=== PATIENT | female | born 1970 | race Caucasian/White ===

== ENCOUNTER → 2020-09-06 13:59 | Outpatient (CLI) | payer OTHER, SELFPAY ==
--- NOTE | ~2020-09-06 | MM_ITS ---
EXAMINATION: MM screening justice BI w jamie HISTORY: Screening mammogram TECHNIQUE: Craniocaudal and mediolateral oblique 3-D tomosynthesis images were obtained and synthetic 2-D images were generated. CAD analysis was submitted and interpreted. COMPARISON: 07/23/2019, 06/28/2018, 02/15/2016 bilateral digital mammogram examinations BREAST PARENCHYMAL COMPOSITION: There are scattered areas of fibroglandular density. FINDINGS: There is no evidence of suspicious mass, calcification, or architectural distortion to sugg est malignancy in either breast. There has been no suspicious interval change. IMPRESSION: 1. No mammographic evidence of malignancy. 2. Recommend routine screening mammography in one year. BI-RADS Category 1: Negative Reviewed, dictated and finalized at location A.
== END ==
PROVIDERS: Visit Provider Nurse Practitioner
DX: Z12.31 Encounter for screening mammogram for malignant neoplasm of breast (principal)
CPT/HCPCS: 77063; 77067

== ENCOUNTER → 2020-12-02 12:59 | Outpatient (CLI) | payer OTHER, BC, SELFPAY ==
--- NOTE | ~2020-12-02 | US_ITS ---
EXAMINATION: US soft tissue head and neck DATE: 12/02/2020 13:15 INDICATION: Left neck lump. TECHNIQUE: Multiple grayscale ultrasound images of the neck were obtained. COMPARISON: None FINDINGS: There is no abnormal mass or lymphadenopathy in the patient's area of concern in the neck. IMPRESSION: 1. No abnormal mass or lymphadenopathy in the patient's area of concern in the neck. Reviewed, dictated and finalized at location B. ICAL AIDE
== END ==
PROVIDERS: PCP Internal Medicine; Visit Provider Nurse Practitioner
DX: M79.89 Other specified soft tissue disorders (principal)
CPT/HCPCS: 76536

== ENCOUNTER → 2021-11-17 14:36 | Outpatient (CLI) | payer OTHER, BC, SELFPAY ==
--- NOTE | ~2021-11-17 | MM_ITS ---
EXAMINATION: MM screening [facility] BI w jamie HISTORY: Screening mammogram TECHNIQUE: Craniocaudal and mediolateral oblique 3-D tomosynthesis images were obtained and synthetic 2-D images were generated. CAD analysis was submitted and interpreted. COMPARISON: 09/06/2020, 07/23/2019, 06/28/2018 BREAST PARENCHYMAL COMPOSITION: There are scattered areas of fibroglandular density. FINDINGS: There is no evidence of suspicious mass, calcification, or architectural distortion to sugg est malignancy in either breast. There has been no suspicious interval change. IMPRESSION: 1. No mammographic evidence of malignancy. 2. Recommend routine screening mammography in one year. BI-RADS Category 1: Negative Reviewed, dictated and finalized at location A. CH STEWARD
== END ==
PROVIDERS: PCP Internal Medicine; Visit Provider Nurse Practitioner
DX: Z12.31 Encounter for screening mammogram for malignant neoplasm of breast (principal)
CPT/HCPCS: 77063; 77067

== ENCOUNTER 2023-09-29 13:32 | Emergency (ER) | payer OTHER, BC, SELFPAY ==
--- NOTE | 2023-09-29 14:10 | ED.GENADULT ---
HPI - General Adult General Chief complaint: Upper Respiratory Infection Stated complaint: sorethroat,chest congestion Time Seen by Provider: 09/29/23 14:10 Source: patient Mode of arrival: ambulatory Limitations: no limitations History of Present Illness HPI narrative: 53-year-old female presents to urgent care today for symptoms that started yesterday of body aches, chills, sore throat, and headache. Patient states she has not taken any ibuprofen or Tylenol because she does not like to take medicine . Patient states that her son has had a sore throat and has just moved back into their home but has not been tested for strep. Related Data Allergies Allergy/AdvReac Type Severity Reaction Status Date / Time No Known Allergies Allergy Mild Verified 09/29/23 13:38 Review of Systems Review of Systems: CONSTITUTIONAL: Positive chills, body aches and sweats. patient has taken temperature at home but has not been over 99.8 ? F. EYES: Denies visual changes, redness, or discharge. ENT: positive rhinorrhea, congestion, sore throat, and otalgia. CARDIOVASCULAR: Denies chest pain, palpitations, or edema. RESPIRATORY: positive cough, denies dyspnea. GASTROINTESTINAL: Denies abdominal pain, nausea, vomiting, or diarrhea. GENITOURINARY: Denies dysuria or hematuria. SKIN: Denies rash or itching. MUSCULOSKELETAL: Denies back pain, joint pain, or myalgia. NEUROLOGIC: positive headache, denies numbness and weakness. PSYCHIATRIC: Denies anxiety or depression. PMFSH Past Medical History Medical History (Updated 09/29/23 @ 14:34 by YOANA Tomlin) Hx LEEP (loop electrosurgical excision procedure), cervix, Surgical History Surgical History (Updated 09/29/23 @ 14:34 by YOANA Tomlin) History of tonsillectomy Social History Social History Smoking status: Never smoker Comments At the time of my signature I agree with nursing past medical history, surgical, social, and family history. There is no relevant family history pertinent to the presenting complaint. Exam Narrative: GENERAL: ill-appearing, well-nourished, and in no acute distress. HEAD: Normocephalic, atraumatic. EYES: PERRLA and EOMI. bilateral watery drainage of the eyes. ENT: Nares clear, no rhinorrhea or epistaxis. Mucous membranes moist. oral cavity mucosa pink, moist, and intact. Posterior oropharynx has erythema and exudate on the posterior soft palate. Tonsils 2+ with erythema. Postnasal drip present in the posterior oropharynx. NECK: Supple. positive lymphadenopathy of the submandibular lymph nodes bilaterally CHEST: Clear to auscultation. No respiratory distress. intermittent dry cough present HEART: Regular rate and rhythm. No murmur heard. Normal peripheral pulses. ABDOMEN: Soft, nontender, nondistended, normal active bowel sounds. EXTREMITIES: Normal range of motion. No edema. SKIN: Warm, dry, no rash. NEURO: No focal deficits. Alert and oriented x3. Course Course Emergency Course: portions of this chart were completed using voice recognition software Level of Care: Express Care Visit Vital Signs Vital signs: vital signs reviewed Medical Decision Making MDM Narrative Medical decision making narrative: due to patient's symptoms and positive strep patient is being sent home with an antibiotic. Symptom management and taking full course of antibiotics discussed with patient. Patient agreed. Differential Diagnosis Differential Diagnosis: differential diagnosis: Viral pharyngitis, pharyngitis, group A strep, infectious mononucleosis, gonococcal pharyngitis, exudative pharyngitis, oral candidiasis. Chronic allergies, postnasal drip, GERD, abscess formation, but glottitis, retropharyngeal abscess formation, or airway obstruction. Critical Care Time Critical Care Time Critical Care Time: No Discharge Plan Discharge Clinical Impression: Acute
[2023-09-29 14:23] VITALS: BP 128/61; PULSE 96; RESP 16; TEMP 37.3; O2SAT 99
== END 2023-09-29 14:22 | disposition home or self-care (01) ==
PROVIDERS: Emergency Provider Nurse Practitioner Family; PCP Nurse Practitioner Family
DX: J02.0 Streptococcal pharyngitis (principal); Z20.822 Contact with and (suspected) exposure to COVID-19
CPT/HCPCS: 87426; 87804; 87880; 99213; C9803; G0463

== ENCOUNTER → 2023-10-09 13:51 | Outpatient (CLI) | payer OTHER, BC, SELFPAY ==
--- NOTE | ~2023-10-09 | MM_ITS ---
EXAMINATION: MM screening justice BI w jamie HISTORY: Screening mammogram TECHNIQUE: Craniocaudal and mediolateral oblique 3-D tomosynthesis images were obtained and synthetic 2-D images were generated. CAD analysis was submitted and interpreted. COMPARISON: 11/17/2021, 09/06/2020 bilateral screening mammogram examinations BREAST PARENCHYMAL COMPOSITION: The breasts are almost entirely fatty. FINDINGS: There is no evidence of suspicious mass, calcification, or architectural distortion to sugg est malignancy in either breast. There has been no suspicious interval change. IMPRESSION: 1. No mammographic evidence of malignancy. 2. Recommend routine screening mammography in one year. BI-RADS Category 1: Negative Reviewed, dictated and finalized at location A. AL HEALTH COORDINATOR
== END ==
PROVIDERS: PCP Nurse Practitioner; Visit Provider Nurse Practitioner
DX: Z12.31 Encounter for screening mammogram for malignant neoplasm of breast (principal)
CPT/HCPCS: 77063; 77067

== ENCOUNTER 2023-10-11 14:03 | Emergency (ER) | payer BC, SELFPAY ==
--- NOTE | ~2023-10-11 | XR_ITS ---
EXAMINATION: XR chest 2V DATE: 10/11/2023 14:36 INDICATION: Cough. TECHNIQUE: Frontal and lateral views of the chest were obtained. COMPARISON: None. FINDINGS: There is no pneumonia, pleural effusion, or pneumothorax. The heart size is normal. IMPRESSION: 1. No acute cardiopulmonary disease. Reviewed, dictated and finalized at location A. CHIPPER
[2023-10-11 14:15] VITALS: BP 127/79; PULSE 100; RESP 18; TEMP 36.5; O2SAT 98
--- NOTE | 2023-10-11 14:27 | ED.GENADULT ---
HPI - General Adult General Chief complaint: Upper Respiratory Infection Stated complaint: Cough,Congestion Source: patient, RN notes reviewed and old records reviewed Mode of arrival: ambulatory Limitations: no limitations History of Present Illness HPI narrative: 53-year-old female presents to [facility] with complaint dry cough for over 2 weeks. Patient seen here on September 27, 2023 and diagnosed with strep throat, patient placed on amoxicillin 500 b.i.d. times 10 days. Patient states sore throat and other symptoms have resolved. patient states cough is worsening, and is now having pain with cough and hearing crackling sound at night. Patient taking Delsym, DayQuil, NyQuil with no relief. Related Data Allergies Allergy/AdvReac Type Severity Reaction Status Date / Time No Known Allergies Allergy Mild Verified 10/11/23 14:10 Review of Systems Constitutional: Constitutional: Reports no additional constitutional complaints, Denies fever(s) and Denies headache(s) Eyes: Eyes: Reports no additional eye complaints ENT: Reports system reviewed and no additional complaints, except as documented Cardiovascular: Cardiovascular: Reports no additional cardiovascular complaints and Denies chest pain Respiratory: Respiratory: Reports chest congestion, Reports cough, Denies hemoptysis, Denies excessive phlegm production, Reports pain with cough, Denies dyspnea and Denies dyspnea on exertion Neurologic: Reports system reviewed and no additional complaints, except as documented PMFSH Past Medical History Medical History (Updated 10/11/23 @ 14:53 by Meryl Min APRN) Hx LEEP (loop electrosurgical excision procedure), cervix, Surgical History Surgical History (Updated 09/29/23 @ 14:34 by YOANA Tomlin) History of tonsillectomy Social History Social History Smoking status: Never smoker Comments At the time of my signature, I reviewed and agree with the nursing past medical, surgical, social, and family history. There is no relevant family history pertinent to the patient complaint. Exam Const: General: cooperative, healthy appearing, no acute distress and well nourished Nutritional Appearance: well nourished Orientation/consciousness: patient oriented x3 Limitations: no limitations HENMT: Head: normal to inspection and normocephalic Ears: external ears normal, TM's normal bilaterally, mastoids normal and Abnormal EAC present Face/Nose/Sinus: normal facial exam Face and sinus: normal facial exam Mouth: Yes Normal oral and palatal mucosa present, Yes oropharynx normal and Yes moist mucous membranes Throat: posterior oropharynx normal, tonsils normal, uvula midline and no uvular edema Eyes: General: appearance normal, both eyes and all related structures Sclera: sclerae normal Pupils: Equal, round and reactive pupils present Resp: Effort & Inspection: normal respiratory effort, able to speak in complete sentences, no audible wheezes, Actively coughing, no respiratory distress and no retractions Auscultation: clear to auscultation bilaterally, no crackles, no rales, no rhonchi, wheezes expiratory wheezes and left lower and breath sounds absent on th left ( Left lower) Cardio: Rate: regular rate Rhythm: regular rhythm Skin: General skin exam: normal color and no rashes or lesions noted Neuro: General: patient oriented x3 Cranial nerves: Yes Equal, round and reactive pupils present Psych: Appearance: grossly normal Course Course Emergency Course: Some parts of this dictation were generated by voice recognition software and may contain typographical and/or grammatical inaccuracies. Level of Care: Express Care Visit Vital Signs Vital signs: Vital Signs Temperature 97.7 F 10/11/23 14:15 Pulse Rate 100 10/11/23 14:15 Respiratory Rate 18 10/11/23 14:15 Blood Pressure 127/79 10/11/23 14:15 Pulse Oximetry 98 10/11/23
== END 2023-10-11 14:58 | disposition home or self-care (01) ==
PROVIDERS: Emergency Provider Registered Nurse; PCP Nurse Practitioner
DX: J20.9 Acute bronchitis, unspecified (principal)
CPT/HCPCS: 71046; 99213; G0463

== ENCOUNTER 2023-12-25 07:22 | Outpatient (CLI) | payer OTHER, BC, SELFPAY ==
--- NOTE | ~2023-12-25 | US_ITS ---
Pelvic ultrasound. Clinical History: Enlarged uterus Technique: Realtime transabdominal scanning of the pelvis was performed. Color flow Doppler and Doppl er spectral analysis were performed. Findings: The uterus is anteverted, and measures 11.6 x 5.3 x 6.6 cm. The endometrial stripe has a t hickness of 9 mm. No focal mass is identified. The right ovary measures 4.1 x 1.9 x 3.1 cm. Right ovarian cyst measures 3 cm in diameter. The left ovary measures 2.2 x 1.4 x 2.2 cm. No significant left ovarian or adnexal mass is seen. There is no evidence of free fluid in the cul de sac. Impression: 3 cm right ovarian cyst. No other significant findings. Reviewed, dictated and finalized at [facility]. IZE MACHINE OPERATOR Impression: 3 cm right ovarian cyst. No other significant findings.
--- NOTE | ~2023-12-25 | MMUS_ITS ---
EXAMINATION: MM diagnostic justice LT w jamie, US breast LT limited HISTORY: Palpable lump at the 3:00 location of the left breast TECHNIQUE: Craniocaudal, mediolateral, and mediolateral oblique 3-D tomosynthesis images of the left breast were performed and synthetic 2-D images were generated. CAD analysis was submitted and interpr eted. High resolution limited left breast ultrasound was performed. COMPARISON: 10/09/2023, 11/17/2021, 09/06/2020 BREAST PARENCHYMAL COMPOSITION: There are scattered areas of fibroglandular density. FINDINGS: MAMMOGRAPHIC FINDINGS: No suspicious mass, calcification, or architectural distortion are identified to suggest malignancy. There has been no suspicious interval change. No mammographic correlate is identified for the reporte d palpable lump of the left breast. ULTRASOUND: There is a 4 mm x 3 mm oval, circumscribed, parallel, hypoechoic mass with no posterior features or i nternal vascularity at the 3:00 location, 7.5 cm from the nipple in the area of palpable concern. IMPRESSION: 1. Probably benign left breast mass corresponding to the area of palpable concern. 2. Recommend 6 month follow-up left diagnostic mammogram and ultrasound. Consider bilateral diagnosti c mammogram given that screening will be due shortly thereafter. BI-RADS category 3, probably benign findings. Reviewed, dictated and finalized at location A. T NURSE IMPRESSION: 1. Probably benign left breast mass corresponding to the area of palpable dillon rn. 2. Recommend 6 month follow-up left diagnostic mammogram and ultrasound. Consid er bilateral diagnostic mammogram given that screening will be due shortly ther eafter. BI-RADS category 3, probably benign findings.
== END 2023-12-25 07:23 ==
LOC: MICIMG 07:23
PROVIDERS: PCP Nurse Practitioner; Visit Provider Nurse Practitioner
DX: N64.4 Mastodynia (principal); N85.2 Hypertrophy of uterus; R92.8 Other abnormal and inconclusive findings on diagnostic imaging of breast; N83.201 Unspecified ovarian cyst, right side
CPT/HCPCS: 76642; 76856; 77061; 77065; G0279

== ENCOUNTER 2024-02-10 01:07 | Day surgery (SDC) | payer OTHER, BC, SELFPAY ==
[2024-01-30 14:05] VITALS: BMI 33.3
--- NOTE | 2024-01-30 14:06 | PC.NURSE ---
Report to the Outpatient Waiting Room, entrance under the green pavilion located off [facility], at time _0745_ on date _[id number]_. Planned Procedure Time: _0945_. Time changes happen often and if your time is changed the preop area will call you the afternoon before. - You and your visitor will be asked to self-screen and do not enter if you have any COVID symptoms. - A mask is optional within the hospital at this time. Patients may have clear liquids (water, carbonated beverages, clear teas, apple juice) until 3 hours prior to surgery with a maximum of 20 ounces. - No food from midnight until time of surgery Take the following medications with a SIP of water the morning of surgery: ___None DO NOT STOP ANY OF YOUR OTHER PRESCRIPTION MEDICATIONS PRIOR TO SURGERY ?EXCEPT THE FOLLOWING Medications to discontinue per physician None Date to take last dose Please no make-up, nail amharic, hairspray, perfume, deodorant, or body powder the day of surgery. No jewelry (including any body piercings) or valuables the day of surgery, leave them at home. Please take a shower or bath the night before, or the morning of, surgery with an antibacterial soap. Wear comfortable, loose fitting clothing. - Jewelry must be removed prior to entering the operating room. Rings and piercings that are not removed may be cut off. - The hospital will not accept responsibility for valuables. - Please leave all valuables, including medications, at home the day of surgery. If you are going home after surgery, a licensed local company refrigerated truck driver must drive you home. - NO public transportation without another adult if you receive anesthesia. - We recommend that an adult stay with you for 24 hours following discharge. - We also recommend that you do not drive, make important decision, drink alcoholic beverages, or take any drugs that were not prescribed by your health care provider for at least 24 hours after your discharge time. Follow any additional instructions given to you from your surgeon. If you or anyone in your household have experienced Covid symptoms in the past week, please notify your surgeon or the nurse liaison at the phone number below for possible testing. Telephone instructions given to _Sofi___and asked if any additional questions and then verbalized understanding. Patient advised to call surgeon office or pre surgery nurse liaison [phone] if any additional questions.
--- NOTE | 2024-02-10 07:05 | WPDANESEPPF ---
Anes - Initial Pre Proc Eval Procedure: Operation Date: 02/10/24 09:45 Proposed Procedures p Hysteroscopy Dilation and Curettage - Rosa Mcknight MD Date/Time: 02/10/24 07:05 Surgeon: Rosa Mcknight MD Pre Op Diagnosis: Menorrhagia Patient Data Age: 53 Gender: F Height: 1.65 m Weight: 90.9 kg Allergies Allergy/AdvReac Type Severity Reaction Status Date / Time No Known Allergies Allergy Mild Verified 02/10/24 07:56 Home Medications Medication Instructions Recorded Confirmed Type No Home Medications 01/30/24 02/10/24 History Patient hx anesthesia problems: none Family hx anesthesia problems: none Results Review: All pre-operative results and documents have been reviewed as part of the pre-operative evaluation. [facility] Past Medical History Medical History (Updated 10/12/23 @ 00:01 by Lit Simpson) Hx LEEP (loop electrosurgical excision procedure), cervix, Surgical History Surgical History (Updated 09/29/23 @ 14:34 by YOANA Tomlin) History of tonsillectomy Social History Social History Smoking status: Never smoker Living arrangements: with family Spiritual care concerns: No Anes - Eval Final PreProcedure Day of Procedure 02/10/24 07:05 Patient weight: obese Heart: regular rate and rhythm Lungs: clear to auscultation Airway: Mallampati scale class II Neurological: alert and oriented Last oral intake: >/= 8 hours ASA classification: II Emergent: no Anesthetic plan: proceed Anesthesia type and monitoring: general LMA and standard monitoring Results Review: All pre-operative results and documents have been reviewed as part of the pre-operative evaluation. Informed Consent: The patient's anesthetic plan and its attendant risks and benefits were discussed with the patient/family/POA. Questions were solicited and answers provided to the satisfaction of the patient/family/POA.
[2024-02-10 07:51] VITALS: BP 129/69; PULSE 83; RESP 18; TEMP 36.7; O2SAT 100
[2024-02-10] MEDS: ACETAMINOPHEN 500 MG TABLET 1000 MG PO (08:05)
[2024-02-10] MEDS: LACTATED RINGERS 1,000 ML 30 ML IV CONT (08:10)
--- NOTE | 2024-02-10 08:38 | WPDHPUPDATE1 ---
History and Physical Update Update Date/Time: 02/10/24 08:38 History and Physical has been reviewed, including an updated exam of the patient. There are NO changes in the patient's condition. Risks, benefits, and alternatives have been discussed and questions answered. Patient agrees to proceed with procedure.
--- NOTE | 2024-02-10 08:39 | P.HP_ITS ---
History of Present Illness History of Present Illness Consent: Risks, benefits, and alternatives have been discussed and questions answered. Patient agrees to proceed with procedure. Chief complaint: Menorrhagia Narrative: Sofi Mcclure is a 53 year old female with heavy cycles passing quarter-size clots bleeding a pad every hour at the beginning of her cycle. It was recommended to undergo D&C hysteroscopy. Risks of infection, bleeding, perforation, and possible pathology were reviewed. Pelvic ultrasound is normal except for a slightly increased uterine size of 11.6cm with no fibroids noted. Patient voices understanding and agrees to proceed. [facility]LY [facility], [facility] Past Medical History Medical History (Updated 02/10/24 @ 08:42 by Rosa Mcknight MD) Elevated cholesterol Hx LEEP (loop electrosurgical excision procedure), cervix, (normal spontaneous vaginal delivery) 1995, 1998, 2008 (twins) Surgical History Surgical History (Updated 02/10/24 @ 08:41 by Rosa Mcknight MD) History of bilateral tubal ligation History of tonsillectomy Social History Social History Smoking status: Never smoker Living arrangements: with family Spiritual care concerns: No Meds Home Medications and Allergies Home Medications Medication Instructions Recorded Confirmed Type No Home Medications 01/30/24 02/10/24 History Allergies Allergy/AdvReac Type Severity Reaction Status Date / Time No Known Allergies Allergy Mild Verified 02/10/24 07:56 Vital Signs Vital Signs - 24 hr 02/10/24 07:51 Temperature 98.0 F Pulse Rate 83 Respiratory Rate 18 Blood Pressure 129/69 Pulse Oximetry 100 Oxygen Delivery Room Air Exam Const: General: healthy appearing and alert Orientation/consciousness: patient oriented x3 Resp: Effort & Inspection: normal respiratory effort GI: GI Palp: Yes Soft to palpation, No Tenderness to palpation present (GI) and No Palpable mass present : External Female Exam: normal external appearance Speculum Exam - Vagina: normal appearance of the vagina and normal vaginal discharge Speculum Exam - Cervix: normal appearance of the cervix Bimanual exam- vagina & uterus: consistency normal and enlarged ( palpates at 14 week size) Bimanual Exam- Adnexa, other: normal adnexae and No adnexal tenderness Neuro: General: patient oriented x3 Assessment and Plan Assessment and plan (1) Menorrhagia: Code(s): N92.0 - Excessive and frequent menstruation with regular cycle Status: Acute Assessment and Plan: plan to proceed with D&C hysteroscopy
--- NOTE | 2024-02-10 09:40 | W.PM.PROC2 ---
Procedure Note - Detailed Date of Procedure 02/10/24 Pre-op Diagnosis Menorrhagia Post-op Diagnosis Same Procedure Performed D&C hysteroscopy with resection of polyp Surgeon Rosa Mcknight MD Anesthesia MAC Findings The uterus sounds to 8cm. There is a large polyp filling lower half of the uterus. The remainder of the endometrium appears grossly normal. Description of Procedure The patient is taken to the operating room and placed under anesthesia in the dorsal lithotomy position. She was prepped and draped in the usual sterile fashion. [place] speculum was placed in the vagina and the cervix grasped on the anterior lip with a tenaculum. The uterus is sounded to 8cm. The diagnostic hysteroscope was placed with the above-stated findings. The Aveeta device was used to resect the polyp in its entirety under direct visualization. The device and hysteroscope were then removed. The sharp OO curette is used to sharply curette the endometrium until a good uterine cry was noted in all areas. All instruments were then removed. Sponge, needle, and instrument counts are correct per the OR staff. The patient was awakened from anesthesia and taken to recovery in stable condition. Estimated Blood Loss 5 Drains No Packing No Pathology Yes ( Endometrial shavings and curettings) Complications No immediate complications Condition Stable Disposition PACU
[2024-02-10 09:42] VITALS: BP 110/57; PULSE 67; RESP 20; O2SAT 100
[2024-02-10] MEDS: fentaNYL CITRATE INJ (*CRX) 100 MCG/2 ML VIAL 25 MCG IV PUSH ×2 (10:07→10:10)
[2024-02-10 10:10] VITALS: BP 118/72; PULSE 62; RESP 20
[2024-02-10] MEDS: oxyCODONE HCL (*CRX) 5 MG TAB IR PO (10:21)
[2024-02-10 10:40] VITALS: BP 115/79; PULSE 65; RESP 20
== END 2024-02-10 10:57 | disposition home or self-care (01) ==
PROVIDERS: PCP Nurse Practitioner Family; Visit Provider Obstetrics & Gynecology Gynecology
PROC: 0U5B8ZZ Destruction of Endometrium, Via Natural or Artificial Opening Endoscopic (ICD-10-PCS; CPT 58563; principal; 2024-02-10 09:45)
DX: N92.0 Excessive and frequent menstruation with regular cycle (principal); N84.0 Polyp of corpus uteri; E78.00 Pure hypercholesterolemia, unspecified; E66.9 Obesity, unspecified; Z68.34 Body mass index [BMI] 34.0-34.9, adult; Z98.890 Other specified postprocedural states
CPT/HCPCS: 58558; 88305; A9270; J2250; J2405; J2704; J3010; J7120

== ENCOUNTER 2024-06-25 08:02 | Outpatient (CLI) | payer OTHER, BC, SELFPAY ==
--- NOTE | ~2024-06-25 | MMUS_ITS ---
EXAMINATION: MM diagnostic justice BI w jamie, US breast LT limited HISTORY: Follow-up left breast mass TECHNIQUE: Additional 3-D tomosynthesis images of the breasts were performed and synthetic 2-D images were generated. CAD analysis was submitted and interpreted. High resolution Limited left breast ultr asound was performed. COMPARISON: Comparison to multiple prior studies sequentially, with oldest reviewed study dated 06/28. BREAST PARENCHYMAL COMPOSITION: Not Dense: The breasts are almost entirely fatty. FINDINGS: MAMMOGRAPHIC FINDINGS: Left breast asymmetry is stable. No new masses, calcifications or architectural distortion in either breast to suggest malignancy. ULTRASOUND: Limited left breast ultrasound: At 3:00, 7.5 cm from the nipple there is an oval hypoechoic 4 mm mass , likely a benign complicated cyst without significant change from prior study allowing for differenc es of technique. IMPRESSION: 1. Probable benign 4 mm left breast cyst at 3:00, 7.5 cm from the nipple. 2. Recommend 6 month follow-up Limited left breast ultrasound BI-RADS category 3, probably benign findings. Reviewed, dictated and finalized at location B. IMPRESSION: 1. Probable benign 4 mm left breast cyst at 3:00, 7.5 cm from the nipple. 2. Recommend 6 month follow-up Limited left breast ultrasound BI-RADS category 3, probably benign findings.
== END 2024-06-25 08:03 ==
PROVIDERS: PCP Nurse Practitioner Family; Visit Provider Obstetrics & Gynecology Gynecology
DX: R92.8 Other abnormal and inconclusive findings on diagnostic imaging of breast (principal)
CPT/HCPCS: 76642; 77062; 77066; G0279

== ENCOUNTER 2024-07-23 13:13 | Emergency (ER) | payer OTHER, BC, SELFPAY ==
--- NOTE | ~2024-07-23 | XR_ITS ---
EXAMINATION: XR abdomen obstructive series DATE: 07/23/2024 13:48 INDICATION: Right upper quadrant abdominal pain. TECHNIQUE: Upright and supine views of the abdomen on 3 radiographs were obtained. COMPARISON: None. FINDINGS: There are no dilated loops of bowel. There is a moderate volume of stool in the colon. No f ree intraperitoneal gas. There are phleboliths in the pelvis. IMPRESSION: 1. Normal bowel gas pattern. Reviewed, dictated and finalized at location A.
[2024-07-23 13:25] VITALS: BP 140/75; PULSE 81; RESP 16; TEMP 36.8; O2SAT 99
--- NOTE | 2024-07-23 13:34 | ED.ABDPAIN ---
HPI - Abdominal Pain General Chief Complaint: Abdominal Pain Stated Complaint: R SIDE ABD PAIN Time Seen by Provider: 07/23/24 13:34 Source: patient, RN notes reviewed and old records reviewed Mode of arrival: ambulatory Limitations: no limitations History of Present Illness HPI narrative: 53 year old female who presents to express care with complaints of sharp pain right upper and mid lateral quadrant of abdomen intermittently since Saturday. Patient reports that she called her doctor and was told to either go to ED or go to express care. Patient reports that she has some radiation of her discomfort to her right upper back at times below shoulder blade. Patient states some nausea with no emesis or any diarrhea, states had normal bowel movement yesterday morning. MD elicited complaint: abdominal pain Onset (ago): day(s) (5-6 days) Pain Consistency: intermittent Location: RUQ Severity: moderate Pain scale (0-10): 6 Quality: sharp Radiation: back (below right shouler blade area) Treatments prior to arrival: other (none) Related Data Allergies Allergy/AdvReac Type Severity Reaction Status Date / Time No Known Allergies Allergy Mild Verified 07/23/24 13:21 Review of Systems Review of Systems: CONSTITUTIONAL: Denies fever, chills, or sweats. ENT: Denies rhinorrhea, congestion, sore throat, or otalgia. CARDIOVASCULAR: Denies chest pain, palpitations, or edema. RESPIRATORY: Denies cough or dyspnea. GASTROINTESTINAL: Reports right upper abdominal pain to lateral mid abdomen with some radiation to back below scapula, nausea,no vomiting,no diarrhea. GENITOURINARY: Denies dysuria or hematuria. SKIN: Denies rash or itching. MUSCULOSKELETAL: Denies back pain, joint pain, or myalgia. NEUROLOGIC: Denies headache, numbness, or weakness. All systems reviewed & are unremarkable except as noted in HPI and below PMFSH Past Medical History Medical History Elevated cholesterol Hx LEEP (loop electrosurgical excision procedure), cervix, (normal spontaneous vaginal delivery) 1995, 1998, 2008 (twins) Surgical History Surgical History H/O colonoscopy 03/30/22 repeat 10 yrs History of bilateral tubal ligation History of tonsillectomy Social History Social History Smoking status: Never smoker Living arrangements: with family Spiritual care concerns: No Comments At time of signature, agree with nursing past medical, surgical, social and family history. There is no relevant family history pertinent to the presenting complaint Exam Narrative: GENERAL: Well-appearing, well-nourished, and in no acute distress. HEAD: Normocephalic, atraumatic. EYES: PERRLA, conjunctivae clear, and EOMI. ENT: Nares clear. Mucous membranes moist. Oropharynx without edema, erythema, or lesions. Tonsils not enlarged and without exudate. NECK: Supple. No lymphadenopathy CHEST: Speaks in full sentences. No respiratory distress. HEART: Regular rate and rhythm. ABDOMEN: Soft, flat, nondistended. No guarding, rebound tenderness, or rigid. No pulsatilla masses. Bowel sounds present in all four quadrants. No organomegaly. Positive Hussein?s sign. No periumbilical tenderness. No Supra public tenderness or distension. Good femoral pulses bilaterally. No hernia noted. No scars or surface trauma. palpable tenderness to right upper quadrant of abdomen with intermittent radiation to back below right scapula SKIN: Warm, dry, no rash. NEURO:? Alert and oriented x3. PSYCH: Normal mood and affect Course Course Emergency Course: Patient is aware of diagnosis, understands and agrees to treatment plan.? Anticipatory guidance given.? Patient agrees to follow-up as directed and is aware of reasons to seek care at the emergency department. Portions of this record may have been
== END 2024-07-23 14:20 | disposition home or self-care (01) ==
PROVIDERS: Emergency Provider Registered Nurse
DX: R10.11 Right upper quadrant pain (principal); E78.00 Pure hypercholesterolemia, unspecified
CPT/HCPCS: 74019; 99213; G0463

== ENCOUNTER 2024-07-28 08:18 | Outpatient (CLI) | payer OTHER, BC, SELFPAY ==
--- NOTE | ~2024-07-28 | US_ITS ---
COMPLETE ABDOMINAL ULTRASOUND Ordering provider: MAGGIE aSndy History: . RUQ Pain . Comparison: None. FINDINGS: LIVER: Normal size and echotexture. No focal hepatic lesions or perihepatic fluid collections are madeline ntified. Portal vein flow is normal. GALLBLADDER: Unremarkable. No evidence for stones, sludge, gallbladder wall thickening or pericholecy stic fluid collections. Gallbladder wall is 0.2 cm. A negative sonographic Hussein's sign was noted. BILIARY DUCTS: No evidence for intra or extrahepatic biliary dilation. Common bile duct measures 4. m m in diameter which is within normal limits. PANCREAS: Well visualized. UPPER ABDOMINAL AORTA: Normal in caliber. IVC: Patent. FREE FLUID: None. IMPRESSION: 1. Unremarkable limited ultrasound of the abdomen. Reviewed, dictated and finalized at location A.
== END 2024-07-28 08:19 | disposition home or self-care (01) ==
PROVIDERS: PCP Nurse Practitioner Family; Visit Provider Nurse Practitioner Family
DX: R01.1 Cardiac murmur, unspecified (principal)
CPT/HCPCS: 76705

== ENCOUNTER 2024-12-22 09:01 | Outpatient (CLI) | payer OTHER, BC, SELFPAY ==
--- NOTE | ~2024-12-22 | US_ITS ---
US breast LT limited 12/22/2024 09:37 Indication: Follow-up left breast cysts Procedure: High-resolution Limited ultrasound of the left breast Comparison: Ultrasound dated 06/25/2024 Findings: Stable appearance to benign 3 mm cyst at 3:00, 7.5 cm posterior to the nipple. No suspiciou s masses to suggest malignancy. Impression: 1: Stable benign left breast cyst at 3:00 measuring 3 mm. No sonographic evidence for malignancy. Routine yearly screening mammogram and regular clinical breast examination are recommended. BI-RADS CATEGORY 2 - BENIGN FINDINGS Reviewed, dictated and finalized at location B. [employer] Impression: 1: Stable benign left breast cyst at 3:00 measuring 3 mm. No sonographic eviden ce for malignancy. Routine yearly screening mammogram and regular clinical breast examination are recommended. BI-RADS CATEGORY 2 - BENIGN FINDINGS
== END 2024-12-22 09:02 | disposition home or self-care (01) ==
PROVIDERS: PCP Nurse Practitioner Family; Visit Provider Obstetrics & Gynecology Gynecology
DX: N60.02 Solitary cyst of left breast (principal)
CPT/HCPCS: 76642

== ENCOUNTER 2025-06-29 11:16 | Outpatient (CLI) | payer OTHER, BC, SELFPAY ==
--- NOTE | ~2025-06-29 | MM_ITS ---
EXAMINATION: MM screening justice BI w jamie HISTORY: Screening mammogram TECHNIQUE: Craniocaudal and mediolateral oblique 3-D tomosynthesis images were obtained and synthetic 2-D images were generated. CAD analysis was submitted and interpreted. COMPARISON: 06/25/2024, 12/25/2023, 11/17/2021 BREAST PARENCHYMAL COMPOSITION:Not Dense. The breasts are almost entirely fatty FINDINGS: No suspicious mass, calcification, or architectural distortion are identified in either breast to suggest malignancy. There has been no suspicious interval change. IMPRESSION: No mammographic evidence of malignancy. Recommend routine screening mammography in one year. BI-RADS Category 1: Negative Reviewed, dictated and finalized at location .
== END 2025-06-29 11:17 | disposition home or self-care (01) ==
LOC: MICIMG 11:21
PROVIDERS: PCP Nurse Practitioner Family; Visit Provider Nurse Practitioner
DX: Z12.31 Encounter for screening mammogram for malignant neoplasm of breast (principal)
CPT/HCPCS: 77063; 77067